=== PATIENT | female | born 1990 | race Caucasian/White ===

== ENCOUNTER 2021-06-17 14:22 | Emergency (ER) | payer OTHER, SELFPAY ==
--- NOTE | ~2021-06-17 | US_ITS ---
EXAMINATION: US VENOUS ULTRASOUND WITH DOPPLER LOWER EXTREMITY, LEFT CLINICAL INFORMATION: Pain and swelling COMPARISON: None TECHNIQUE: Ultrasound of the deep veins is performed from the hip to the calf with compression sonography and color and pulse Doppler assessment. Spectral analysis with color-flow imaging is performed. FINDINGS: There is normal venous compression and respiratory variation and augmented flow. The visualized common femoral vein, superficial femoral vein, profunda femoral vein, popliteal vein, and the trifurcation region shows no evidence of deep venous thrombosis. There is no significant popliteal fossa cyst. US/US venous duplex LE LT IMPRESSION: No DVT demonstrated in the left lower extremity.
--- NOTE | 2021-06-17 18:09 | ED.EXTPRO ---
HPI - Extremity Problem General Stated complaint: l leg pain quest of dvt Time Seen by Provider: 06/17/21 15:48 Source: patient Mode of arrival: ambulatory Limitations: no limitations History of Present Illness MD Complaint: extremity pain Onset (ago): month(s) (1) Pain Consistency: constant Location: left and lower extremity Quality: aching and constant Radiation: none Relieving factors: nothing Exacerbating factors: other (worse at night) Associated symptoms: denies other symptoms Related Data Allergies Allergy/AdvReac Type Severity Reaction Status Date / Time No Known Allergies Allergy Unverified 04/11/20 17:21 Review of Systems Review of Systems: Constitutional : No Fever, No Chills ENT/Mouth : No sore throat, No Rhinorrhea Eyes: No Eye Pain, No Swelling, No Redness Cardiovascular : No Chest Pain, No SOB Respiratory : No Cough, No Sputum, No Wheezing Gastrointestinal : No Nausea, No Vomiting Musculoskeletal : No joint pain, pos leg cramp, No Joint Swelling Skin : No Skin Lesions, No rash Neuro : No Weakness, No Numbness, No Dizziness, No Headache PMFSH Past Medical History Attestation statement: The following information was validated with the patient. Medical History (Updated 06/17/21 @ 18:12 by Olesya Anderson DO) No known health problems Social History Social History (Updated 06/17/21 @ 18:12 by Olesya Anderson DO) Patient Tobacco Use Status: Never used Tobacco Advance Directives: No Advance Directives Information Provided: No Physical Exam Vital Signs: Appearance: Alert. Oriented X3. No acute distress. Eyes: Pupils equal, round and reactive to light. ENT: Pharynx normal. Neck: Normal inspection. Neck supple. CVS: Normal heart rate and rhythm. Pulses normal. Respiratory: No respiratory distress. Abdomen: Soft and non-tender. Skin: Skin warm and dry. Normal skin color. Normal skin turgor. Extremities: No lower extremity edema. mild L calf ttp Neuro: Oriented X 3. No motor deficit. No sensory deficit. MDM - Extremity (Nontraumatic) MDM Narrative Medical decision making narrative: 31 yo female with 1 month of LLE pain NV intact c/o cramps at night just in LLE - no other areas or issues, she is NV intact - US negative stable for DC Discharge Plan Discharge Clinical Impression: Cramp in muscle Patient Disposition: Home, Self-Care Instructions: Leg Cramps (ED) Additional Instructions: return to ED for any worsening symptoms or concerns eat banana , handful of almonds a day, gatorade daily Referrals: Elyssa Cottrell MD [Primary Care Provider] - 2 days (if not better) Stand Alone Forms: Work/School Release
[2021-06-17 18:11] VITALS: BP 155/94; PULSE 88; RESP 18; TEMP 36.6; O2SAT 99; BMI 32.3
== END 2021-06-17 18:16 | disposition home or self-care (01) ==
PROVIDERS: Emergency Provider Emergency Medicine; PCP Internal Medicine
DX: R25.2 Cramp and spasm (principal); R60.0 Localized edema
CPT/HCPCS: 93971; 99282; 99284